=== PATIENT | male | born 1980 | race Caucasian/White ===

== ENCOUNTER 2019-07-04 10:03 | Emergency (ER) | payer BC, SELFPAY ==
[2019-07-04 10:11] VITALS: BP 122/62; PULSE 92; RESP 16; TEMP 37.4; O2SAT 98
--- NOTE | 2019-07-04 10:24 | ED.URI ---
HPI - URI/Sore Throat General Chief Complaint: Upper Respiratory Infection Stated Complaint: sore throat fever Time Seen by Provider: 07/04/19 10:24 Source: patient and RN notes reviewed History of Present Illness HPI Narrative: Patient is a 39-year-old male that presents the urgent care with complaints of sore throat, fever, body aches x1 day. Patient states his entire family has been diagnosed with strep recently. Denies any use of [id number] medication. No other acute complaints. No acute distress noted. Patient aware the plan of care. Related Data Allergies Allergy/AdvReac Type Severity Reaction Status Date / Time No Known Allergies Allergy Verified 07/04/19 10:24 Review of Systems Review of Systems: Narrative: CONSTITUTIONAL: Reports a fever EYES: Denies visual changes, redness, or discharge. ENT: Reports of sore throat CARDIOVASCULAR: Denies chest pain, palpitations, or edema. RESPIRATORY: Denies cough or dyspnea. GASTROINTESTINAL: Denies abdominal pain, nausea, vomiting, or diarrhea. GENITOURINARY: Denies dysuria or hematuria. SKIN: Denies rash or itching. MUSCULOSKELETAL: Denies back pain, joint pain; reports of body aches NEUROLOGIC: Denies headache, numbness, or weakness. All other systems reviewed are negative, except as documented in HPI. [facility] Family History Family History (Updated 12/15/13 @ 07:13 by DOCTOR UNKNOWN) Father Family history of hepatitis Mother Family history of hepatitis Social History Social History Smoking status: Never smoker Alcohol intake: current Comments At the time of my signature, I reviewed and agree with the nursing past medical, surgical, social, and family history. There is no relevant family history pertinent to the patient complaint. Exam Narrative: Exam Narrative: GENERAL: This is a well-nourished, well-developed patient, in no apparent distress. HEAD: normocephalic, atraumatic. EYES: PERRL. Sclera clear/white. Vision is grossly intact. EARS: External ears normal, auditory canals clear and without drainage, TMs normal without perforation. Hearing grossly intact. NOSE: External nose normal with no obvious nasal discharge, nares without redness, no rhinorrhea. THROAT: Mucous membranes moist, moderate erythema noted posterior oropharynx with moderate postnasal drainage without exudate or ulceration NECK: Neck supple, non-tender without lymphadenopathy, masses or thyromegaly. CARDIOVASCULAR: Regular rate and rhythm without murmurs, gallops, or rubs. RESPIRATORY: Clear to auscultation. Breath sounds equal bilaterally. No wheezes, rales, or rhonchi. SKIN: warm, intact with no suspicious lesions or rash, good texture and turgor. NEURO: awake, alert, and oriented to person, place and time. There were no obvious focal neurologic abnormalities. EXTREMITIES: No clubbing, cyanosis, or edema. Course Vital Signs Vital signs: Vital Signs Temperature 99.4 F 07/04/19 10:11 Pulse Rate 92 07/04/19 10:11 Respiratory Rate 16 07/04/19 10:11 Blood Pressure 122/62 07/04/19 10:11 Pulse Oximetry 98 07/04/19 10:11 Temperature 99.4 F 07/04/19 10:11 Pulse Rate 92 07/04/19 10:11 Respiratory Rate 16 07/04/19 10:11 Blood Pressure 122/62 07/04/19 10:11 Pulse Oximetry 98 07/04/19 10:11 Reviewed MDM - URI/Sore Throat MDM Narrative Medical decision making narrative: Reviewed lab results with the patient. He is aware that strep swab was positive. Advised him to complete antibiotic regimen as prescribed. Make sure to eat and drink with the medication. Increase fluids and rest. Use Tylenol/ibuprofen as needed for fever pain. Use humidifier at night. Follow-up with PCP within 2 to 5 days if worsening symptoms or failure to improve. Differential Diagnosis Differential diagnosis: Likely upper respiratory infection, otitis media, sinusitis, viral infection, bronchitis, influenza and pharyngitis Lab Data Attestation: I reviewed the patient's lab r
== END 2019-07-04 10:30 | disposition home or self-care (01) ==
PROVIDERS: Emergency Provider Nurse Practitioner Family
DX: J02.0 Streptococcal pharyngitis (principal)
CPT/HCPCS: 87880; 99203; G0463